=== PATIENT | female | born 1985 | race Caucasian/White ===

== ENCOUNTER → 2017-05-09 | Outpatient (CLI) | payer OTHER ==
[~2017-05-09] MED LIST: ACEASPCAF; Augmentin 875-1 EACH PO; DIAZ5 PO; HYDACE5 PO; OXYACE5T PO; OXYC10TA19 PO; Prilosec Otc20 MG PO
== END | disposition home or self-care (01) ==
LOC: LAB 17:14 → LAB SHORT 17:14
PROVIDERS: Hospitalist
DX: Z12.4 Encounter for screening for malignant neoplasm of cervix (principal)
CPT/HCPCS: G0145

== ENCOUNTER → 2020-11-11 | Outpatient (CLI) | payer OTHER | END | disposition home or self-care (01) | LOC: LAB SHORT 14:57 → LAB 14:57 | DX: D22.39 Melanocytic nevi of other parts of face (principal); D22.4 Melanocytic nevi of scalp and neck | CPT/HCPCS: 88305 ==

== ENCOUNTER → 2024-05-02 | Outpatient (CLI) | payer OTHER ==
[2024-05-09 11:37] LABS: HPV HIGH RISK BY TMA Not Detected; HPV SOURCE Cervical
== END | disposition home or self-care (01) ==
LOC: LAB 16:00 → LAB SHORT 16:00
PROVIDERS: Family Medicine
DX: Z01.419 Encounter for gynecological examination (general) (routine) without abnormal findings (principal)
CPT/HCPCS: G0123

== ENCOUNTER → 2024-05-30 | Outpatient (CLI) | payer OTHER ==
[2024-05-30 12:06] LABS: BASOPHILS ABSOLUTE AUTO 0.04 K/mm3 (0.00-0.23); BASOPHILS PERCENT AUTO 1 % (0-2); EOSINOPHILS ABSOLUTE AUTO 0.05 K/mm3 (0.00-0.68); EOSINOPHILS PERCENT AUTO 1 % (0-6); Hematocrit 42.5 % (33.0-51.0); Hemoglobin 14.4 g/dL (11.5-16.0); IMMATURE GRAN ABSOLUTE AUTO 0.02 K/mm3 (0.00-0.10); IMMATURE GRAN PERCENT AUTO 0 % (0-1); LYMPHOCYTES ABSOLUTE AUTO 1.64 K/mm3 (0.84-5.20); LYMPHOCYTES PERCENT AUTO 25 % (21-46); MONOCYTES ABSOLUTE AUTO 0.33 K/mm3 (0.16-1.47); MONOCYTES PERCENT AUTO 5 % (4-13); Mean Corpuscular HGB 29.9 pg (26.0-34.0); Mean Corpuscular HGB Conc 33.9 g/dL (31.5-36.5); Mean Corpuscular Volume 88 fL (80-100); Mean Platelet Volume 11.3 fL (9.1-12.4); NEUTROPHILS ABSOLUTE AUTO 4.59 K/mm3 (1.96-9.15); NEUTROPHILS PERCENT AUTO 69 % (41-73); Platelet Count 285 K/mm3 (150-400); RDW Standard Deviation 42.2 fL (35.1-46.3); Red Blood Cell Count 4.81 M/mm3 (3.80-5.20); White Blood Cell Count 6.67 K/mm3 (4.00-11.30)
== END ==
LOC: LAB SHORT 12:00 → LAB 12:00
PROVIDERS: Physician Assistant
DX: N92.0 Excessive and frequent menstruation with regular cycle (principal)
CPT/HCPCS: 84443; 85025

== ENCOUNTER → 2024-10-31 | Outpatient (CLI) | payer OTHER ==
[2024-10-31 16:19] LABS: Chlamydia Trachomatis Urine NOT DETECTED (NOT DETECT); Neisseria Gonorrhoea Urine NOT DETECTED (NOT DETECT)
== END ==
LOC: LAB 08:00 → LAB SHORT 08:00
PROVIDERS: Physician Assistant
DX: Z11.3 Encounter for screening for infections with a predominantly sexual mode of transmission (principal)
CPT/HCPCS: 87491; 87591

== ENCOUNTER 2025-02-24 12:16 | Day surgery (SDC) | payer OTHER ==
[~2025-02-24] VITALS: Ht 152.4 cm; Wt 86.0 kg
[~2025-02-24 12:16] MED LIST changes: +MULVITA PO
[2025-02-24 12:49] VITALS: BP 101/54
--- NOTE | 2025-02-24 12:57 | NUR ---
History, Chart, Medications and Allergies reviewed before start of procedure. Pre-Op teaching done. Pt verbalizes understanding. Patient confirms NPO status and agrees with scheduled surgery. Patient states colon prep results LT YELLOW.
--- NOTE | 2025-02-24 13:49 | NUR ---
02/24/25 1349 Stephie Henao History, Chart, Medications and Allergies reviewed before start of procedure.DR PILLAI PROVIDING ANESTHESIA SE NOTES
[2025-02-24 14:17] VITALS: BP 117/55
[2025-02-24 14:32] VITALS: BP 135/87
--- NOTE | 2025-02-24 14:54 | NUR ---
1449 PT YULIA PROCEDURE WELL, VSS, REVIEWED DISHCARGE INSTRUCTIONS, SEEN BY DR. DAWSON PRIOR TO DISCHARGE, NEW RX GIVEN. PT A,A,OX4 AMBULATORY WITH STEADY GAIT, D/CD HOME WITH AN ADULT PARK WARDEN, VERBALIZED UNDERSTANDING OF ALL DISCHARGE INSTRUCTIONS
--- NOTE | 2025-02-24 15:05 | NUR ---
1417 RECEIVED REPORT/PT FROM JESSI MIJARES ENDO NURSE, PT IN STABLE CONDITION NO C/O PAIN OR NAUSEA, VITALS STABLE.
== END 2025-02-24 23:00 | disposition home or self-care (01) ==
LOC: ORSCMMR 12:16 → ORD 13:30 → ORSCMMR 13:45 → ORD 13:45 → ORSCMMR 23:00
PROVIDERS: Family Medicine
PROC: 0DBE8ZX Excision of Large Intestine, Via Natural or Artificial Opening Endoscopic, Diagnostic (ICD-10-PCS; principal; 2025-02-24 13:45)
DX: K92.1 Melena (principal); K52.9 Noninfective gastroenteritis and colitis, unspecified; G47.33 Obstructive sleep apnea (adult) (pediatric); J45.909 Unspecified asthma, uncomplicated; K21.9 Gastro-esophageal reflux disease without esophagitis; F17.210 Nicotine dependence, cigarettes, uncomplicated; E66.9 Obesity, unspecified; Z68.37 Body mass index [BMI] 37.0-37.9, adult; F32.A Depression, unspecified; F41.9 Anxiety disorder, unspecified
CPT/HCPCS: 88305; J2704; J7120